=== PATIENT | male | born 1985 | race African-American/Black ===

== ENCOUNTER 2023-05-09 20:14 | Emergency (ER) | payer BC ==
[~2023-05-09] VITALS: Ht 177.8 cm; Wt 138.3 kg
[2023-05-09 20:52] VITALS: BP_SYST 197
[2023-05-10 01:08] VITALS: BP_SYST 128
== END 2023-05-10 00:45 | disposition home or self-care (01) ==
LOC: SED 20:14
DX: T16.2XXA Foreign body in left ear, initial encounter (principal); I10 Essential (primary) hypertension; Z79.899 Other long term (current) drug therapy; W45.8XXA Other foreign body or object entering through skin, initial encounter; Y93.89 Activity, other specified; Y92.89 Other specified places as the place of occurrence of the external cause; Y99.8 Other external cause status
CPT/HCPCS: 99284